=== PATIENT | male | born 1970 | race American Indian/Alaskan Native ===

== ENCOUNTER 2016-03-05 07:23 | Inpatient (IN) | payer OTHER ==
[2016-03-05] MEDS ORDERED: CARDIZEM ONE (07:31)
[2016-03-05] MEDS ORDERED: SUBLIMAZE ONE (07:31)
[2016-03-05] MEDS ORDERED: VERSED IV ONE (07:36)
[2016-03-05] MEDS ORDERED: NACL 0.9% 1000 ML 1,000 ML ONE (07:37)
[2016-03-05] MEDS ORDERED: ZOFRAN ONE (07:43)
[2016-03-05] MEDS ORDERED: NACL 0.9% 1000 ML 2,000 ML IV ONE (07:49)
[2016-03-05] MEDS ORDERED: SUBLIMAZE IV ONE (07:50)
--- NOTE | 2016-03-05 08:09 | Emergency Department Report ---
HPI - General Chief Complaint: Arrhythmia/Palpitations Time Seen by Provider: 03/05/16 07:48 - HPI HPI: The patient is a 46-year-old male with a history of arrhythmia and hypertension , who presents for evaluation of palpitations and chest pain. The patient reports sudden onset of constant severe palpitations at 6:30 AM this morning, approximately 11 hour prior to my evaluation. He also reports associated mild to moderate dyspnea and midsternal pressure-like chest pain also constant since onset 1 hour ago, 8 out of 10 in severity. The patient denies fever, cough, syncope, hemoptysis, unilateral leg swelling, recent immobilization, history of DVT or PE, recent cancer. ED Past Medical Hx - Past Medical History Previous Medical History?: Yes Hx Hypertension: Yes Hx Renal Disease: Yes (stage 3, no dialysis) Additional medical history: tachycardia - Social History Smoking Status: Never Smoker Substance Use Type: None ED Review of Systems ROS: Stated complaint: CHEST PAIN/SVT Other details as noted in HPI Constitutional: denies: fever ENT: denies: throat or neck pain Respiratory: denies: cough, reports shortness of breath Cardiovascular: Reports palpitations and chest pain Endocrine: denies unexplained weight loss or gain Gastrointestinal: denies: abdominal pain, nausea Genitourinary: denies: dysuria Musculoskeletal: denies: leg swelling Skin: denies: rash Neurological: denies: headache Hematological/Lymphatic: denies: easy bleeding or easy bruising Psych: denies sadness or hopelessness Physical Exam - Physical Exam Vital Signs: Vital Signs 03/05/16 03/05/16 03/05/16 07:27 07:28 07:29 Pulse Rate 198 H 198 H Respiratory 28 H 24 25 H Rate Blood Pressure O2 Sat by Pulse 94 100 Oximetry 03/05/16 03/05/16 03/05/16 07:31 07:33 07:35 Pulse Rate 193 H 194 H 195 H Respiratory 21 18 27 H Rate Blood Pressure O2 Sat by Pulse 90 96 92 Oximetry 03/05/16 03/05/16 03/05/16 07:37 07:39 07:41 Pulse Rate 191 H 189 H 87 Respiratory 23 19 37 H Rate Blood Pressure 68/22 O2 Sat by Pulse 94 92 92 Oximetry 03/05/16 03/05/16 07:42 07:54 Pulse Rate 72 Respiratory 26 H 26 H Rate Blood Pressure 96/53 O2 Sat by Pulse 97 Oximetry Physical Exam: General: well-nourished, well-developed, no acute distress Head: Normocephalic, atraumatic Eyes: normal sclera ENT: Mucous membranes are pale and dry Neck: trachea midline, neck supple, No neck stiffness, no cervical adenopathy Respiratory: Breath sounds equal bilaterally, no wheezing, rales, or rhonchi Cardio: tachycardia present, S1 and S2 present, no murmurs, rubs, gallops, capillary refill is delayed Abdomen: Normoactive bowel sounds, soft abdomen, no rigidity, no guarding or rebound tenderness Musc: No pitting edema Skin: No rash Neuro: no facial drooping, normal speech Psych: Normal affect ED Course Vital Signs 03/05/16 03/05/16 03/05/16 07:27 07:28 07:29 Pulse Rate 198 H 198 H Respiratory 28 H 24 25 H Rate Blood Pressure O2 Sat by Pulse 94 100 Oximetry 03/05/16 03/05/16 03/05/16 07:31 07:33 07:35 Pulse Rate 193 H 194 H 195 H Respiratory 21 18 27 H Rate Blood Pressure O2 Sat by Pulse 90 96 92 Oximetry 03/05/16 03/05/16 03/05/16 07:37 07:39 07:41 Pulse Rate 191 H 189 H 87 Respiratory 23 19 37 H Rate Blood Pressure 68/22 O2 Sat by Pulse 94 92 92 Oximetry 03/05/16 03/05/16 07:42 07:54 Pulse Rate 72 Respiratory 26 H 26 H Rate Blood Pressure 96/53 O2 Sat by Pulse 97 Oximetry ED Medical Decision Making - Lab Data Result diagrams: 03/05/16 08:10 03/05/16 08:10 - Medical Decision Making The patient was seen and examined by myself. The patient is placed on a electronic device monitor and continuous pulse ox. Prior to arrival the patient was given IV adenosine via EMS. On initial evaluation, the patient was found to be in no distress, with severe tachycardia, heart rate 196, and mild tachypnea. EKG demonstrates regularly irregular narrow complex tachycardia, heart rate in 190s. The patient is given a second dose of IV adenosine and the patient converts to NS rhythm with normal heart rate. Evaluation orders were placed. The patient is given IV fentanyl for his chest pain and 1 L normal saline fluid bolus for treatment of dehydration. The patient is given a tablet of aspirin. A second EKG reveals normal sinus rhythm with ST depression in leads V3 and V4, concerning for ischemia. Chest x-ray is negative for pneumothorax, focal consolidation, pulmonary vascular congestion, pleural effusion, or other obvious acute cardiopulmonary disease process. Lab results reveal elevated creatinine level, consistent with known history of stage III CKD, and otherwise labs were non-concerning including levels of troponin, WBC, hemoglobin, hematocrit, electrolytes. The patient is given a tablet of aspirin. The on-call hospitalist service was contacted. They agreed to admit the patient for further treatment and close monitoring. The ED admit order was placed. The patient was admitted in guarded condition. Critical care attestation.: If time is entered above; I have spent that time in minutes in the direct care of this critically ill patient, excluding procedure time. ED Disposition Clinical Impression: Acute chest pain, SVT (supraventricular tachycardia), Anterior ST segment depression Disposition: OP ADMITTED IP TO THIS HOSP Is pt being admited?: Yes Does the pt Need Aspirin: Yes Condition: Stable Instructions: Chest Pain (ED) Referrals: PRIMARY CARE [Primary Care Provider] - 3-5 Days Time of Disposition: 08:32
[2016-03-05 08:28] LABS: Basophils % (Auto) 0.7 % (0.0-1.8); Eosinophils % (Auto) 3.6 % (0.0-4.3); Hematocrit 32.2 % (35.5-45.6); Hemoglobin 10.3 gm/dl (11.8-15.2); Mean Corpuscular HGB Conc 32 % (32-34); Mean Corpuscular Hemoglobin 28 pg (28-32); Mean Corpuscular Volume 89 fl (84-94); Platelet Count 206 K/mm3 (140-440); Red Blood Count 3.64 M/mm3 (3.65-5.03); Red Cell Distribution Width 14.2 % (13.2-15.2); White Blood Count 6.6 K/mm3 (4.5-11.0)
[2016-03-05 08:39] LABS: INR 1.04 (0.87-1.13)
[2016-03-05 08:40] LABS: Partial Thromboplastin Time 29.7 Sec. (24.2-36.6)
--- NOTE | 2016-03-05 08:44 | XRay Report ---
Portable supine chest: Lungs are somewhat hypoventilated with elevation of right hemidiaphragm. There is rotation to the left. The lungs appear clear. The heart is difficult to assess due to positioning and inspiratory limitation. No vascular congestion considering positioning. Impression: Limited quality study. Nonspecific right diaphragmatic elevation. Recommendation: Suggest repeat examination with proper positioning and inspiration when possible.
[2016-03-05 10:42] LABS: Alanine Aminotransferase 12 units/L (7-56); Albumin 3.1 g/dL (3.9-5); Albumin/Globulin Ratio 1.2 %; Alkaline Phosphatase 59 units/L (35-129); Anion Gap 25 mmol/L; BUN/Creatinine Ratio 13.03; Bilirubin,Total < 0.2 mg/dL (0.1-1.2); Blood Urea Nitrogen 43 mg/dL (9-20); Calcium 7.7 mg/dL (8.4-10.2); Carbon Dioxide 15 mmol/L (22-30); Chloride 105.3 mmol/L (98-107); Glucose 138 mg/dL (75-100); Magnesium 1.6 mg/dL (1.7-2.3); Potassium 4.7 mmol/L (3.6-5.0); Sodium 141 mmol/L (137-145); Total Protein 5.7 g/dL (6.3-8.2)
[2016-03-05] MEDS ORDERED: BABY ASPIRIN PO ONE (10:59)
[2016-03-05] MEDS ORDERED: PHENERGAN PR PRN (11:30)
[2016-03-05] MEDS ORDERED: NITROSTAT SL PRN (11:32)
--- NOTE | 2016-03-05 11:42 | History and Physical Report ---
History of Present Illness Date of examination: 03/05/16 Date of admission: 03/05/16 10:59 Chief complaint: chest pain with palpitations this morning History of present illness: Mr. Stephenson is a 46-year-old -[place] man who presented to the emergency room with left-sided chest pain, pressing in nature associated with palpitations , diaphoresis and nausea this morning. He reported that it lasted for a couple hours. EMS was called and he was transported to the emergency room. He was noted to be in SVT with heart rates of about 200. He was given adenosine in the emergency room and he converted to sinus rhythm. The time of evaluation he had no chest pain or palpitations. Of note he reported that he's had a similar episode about 2-3 years ago and at that time he also had a stress test done which was unremarkable. Denies drug use. Past History Past Medical History: other (chronic kidney disease) Past Surgical History: Other (renal biopsy) Social history: , lives with family, full code. denies: smoking, alcohol abuse, prescription drug abuse, IV drug use Family history: hypertension Medications and Allergies Allergies Allergy/AdvReac Type Severity Reaction Status Date / Time acetaminophen [From Percocet] AdvReac Vomiting Verified 03/05/16 08:03 oxycodone HCl [From Percocet] AdvReac Vomiting Verified 03/05/16 08:04 Active Meds: Active Medications Aspirin (Aspirin) 325 mg PO QDAY CONSTANTINE Nitroglycerin (Nitrostat) 0.4 mg SL .Q5MIN PRN PRN Reason: Chest Pain Promethazine HCl (Phenergan) 25 mg MA Q6H PRN PRN Reason: N/V IF NPO AND NO IV ACCESS Review of Systems All systems: negative Constitutional: no weight loss, no weight gain, no fever, no chills, no sweats Ears, nose, mouth and throat: no ear pain, no ear discharge, no tinnitis, no decreased hearing, no nose pain Cardiovascular: other (as in the history of presenting complaint) Respiratory: no cough, no cough with sputum, no excessive sputum, no hemoptysis , no shortness of breath, no dyspnea on exertion Gastrointestinal: nausea, no abdominal pain, no vomiting, no diarrhea, no constipation, no change in bowel habits Genitourinary Male: no dysuria, no hematuria, no flank pain, no discharge Rectal: no pain, no incontinence, no bleeding Musculoskeletal: no neck stiffness, no neck pain, no shooting arm pain, no arm numbness/tingling Integumentary: no rash, no pruritis, no redness, no sores Neurological: no head injury, no transient paralysis, no paralysis, no weakness , no parathesias Psychiatric: no anxiety, no memory loss, no change in sleep habits, no sleep disturbances, no insomnia, no hypersomnia, no change in appetite Endocrine: no cold intolerance, no heat intolerance, no polyphagia Hematologic/Lymphatic: no easy bruising, no easy bleeding Allergic/Immunologic: no urticaria, no allergic rhinitis, no wheezing Exam - Constitutional Vitals: Temp Pulse Resp BP Pulse Ox 89 17 129/76 99 03/05/16 11:00 03/05/16 11:00 03/05/16 11:00 03/05/16 11:00 General appearance: Present: no acute distress, well-nourished - EENT Eyes: Present: PERRL, EOM intact. Absent: scleral icterus, conjunctival injection ENT: hearing intact, clear oral mucosa, no oropharyngeal erythema, no poor dentition - Neck Neck: Present: supple, normal ROM. Absent: enlarged thyroid, masses or JVD - Respiratory Respiratory effort: normal Respiratory: negative: diminished, rales, rhonchi, wheezing - Cardiovascular Rhythm: regular Heart Sounds: Present: S1 & S2. Absent: gallop - Extremities Extremities: no ischemia, pulses intact, pulses symmetrical, No edema, normal temperature Peripheral Pulses: within normal limits - Abdominal General gastrointestinal: Present: soft, non-tender, non-distended Male genitourinary: Present: deferred - Rectal Rectal Exam: deferred - Integumentary Integumentary: Present: clear - Musculoskeletal Musculoskeletal: strength equal bilaterally - Psychiatric Psychiatric: appropriate mood/affect, intact judgment & insight - Neurologic Neurologic: CNII-XII intact, moves all extremities Results - Labs CBC & Chem 7: 03/05/16 08:10 03/05/16 08:10 - Imaging and Cardiology EKG: image reviewed ([id number] with heart rates of 200; post adenosine ST segment depression V3 - V6 ) Chest x-ray: report reviewed ([id number]. Nonspecific right diaphragmatic elevation. The lungs appear clear) Assessment and Plan 1. PSVT with ST segment depression-now in sinus post cardioversion with adenosine; we'll admit as an inpatient to telemetry as more than 2 minutes and required for treatment. TSH is normal. We'll check drug screen. We'll do serial cardiac enzymes. We'll also get echocardiogram and follow-up with cardiology for further recommendations. For stress test in the morning; echo lipid panel. Continue aspirin. Nitroglycerin as needed for chest pain 2. Chronic kidney disease stage IV-consult Dr. Buckner a his machinist outside, will avoid nephrotoxic agents. Monitor BUN and creatinine 3. Hypomagnesemia- will replace with IV supplementation; monitor 4. 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 DVT prophylaxis-heparin
[2016-03-05 11:44] LABS: Bacteria,Urine 1+ /HPF (Negative); Bilirubin,Urine NEG (Negative); Blood,Urine MOD (Negative); Ketones,Urine NEG (Negative); Leukocyte Esterase,Urine NEG (Negative); Nitrite,Urine NEG (Negative); Urobilinogen,Urine < 2.0 mg/dL (<2.0); WBC,Urine < 1.0 /HPF (0.0-6.0)
--- NOTE | 2016-03-05 12:26 | Consultation ---
History of Present Illness Consult date: 03/05/16 Requesting physician: STEVO GONZALEZ Consult reason: arrhythmia, chest pain History of present illness: At about 6:30 AM this morning, the patient claims that he felt suddenly hot and diaphoretic. He then developed precordial chest pressure associated with shortness of breath. After a while, he developed palpitations as well as dizziness and presyncope. He went out of his house to take some fresh air. However, symptoms persisted. As such, he was brought to the emergency department for evaluation. In the ER, he was in rapid supraventricular tachycardia. He received adenosine with conversion to sinus rhythm. His electrolytes are normal as well as his thyroid profile. He recalls presenting to the ER to [facility] with an unspecified arrhythmia about 2 years ago. Past History Past Medical History: hypertension, hyperlipidemia, other (stage III CKD followed by Dr. Buckner.) Past Surgical History: Other (renal biopsy) Social history: , lives with family, full code. denies: smoking, alcohol abuse, prescription drug abuse, IV drug use Family history: denies: CAD Medications and Allergies Allergies Allergy/AdvReac Type Severity Reaction Status Date / Time acetaminophen [From Percocet] AdvReac Vomiting Verified 03/05/16 08:03 oxycodone HCl [From Percocet] AdvReac Vomiting Verified 03/05/16 08:04 Active Meds: Active Medications Aspirin (Aspirin) 325 mg PO QDAY CONSTANTINE Nitroglycerin (Nitrostat) 0.4 mg SL .Q5MIN PRN PRN Reason: Chest Pain Promethazine HCl (Phenergan) 25 mg NC Q6H PRN PRN Reason: N/V IF NPO AND NO IV ACCESS Review of Systems Constitutional: no fever, no chills Ears, nose, mouth and throat: no ear pain, no ear discharge, no sore throat Cardiovascular: chest pain, palpitations, lightheadedness, shortness of breath Respiratory: shortness of breath, no cough, no hemoptysis Gastrointestinal: no abdominal pain, no nausea, no vomiting, no diarrhea, no constipation Genitourinary Male: no dysuria, no urinary frequency Rectal: no pain, no bleeding Musculoskeletal: no neck pain, no myalgias, no atrophy Integumentary: no rash, no pruritis Neurological: no weakness, no parathesias, no numbness, no tingling, no headaches Endocrine: no cold intolerance, no heat intolerance Hematologic/Lymphatic: no easy bruising, no easy bleeding Allergic/Immunologic: no urticaria, no wheezing Physical Examination Vital Signs Last Vital Signs Temp Pulse 89 03/05/16 11:00 Resp 17 03/05/16 11:00 BP 129/76 03/05/16 11:00 Pulse Ox 99 03/05/16 11:00 General appearance: no acute distress HEENT: Positive: EOMI, Normocephaly, Mucus Membranes Moist Neck: Positive: neck supple, trachea midline Cardiac: Positive: Reg Rate and Rhythm, S1/S2 Lungs: Positive: clear to auscultation Neuro: Positive: Grossly Intact Abdomen: Positive: Soft, Active Bowel Sounds. Negative: Tender Skin: Positive: Clear. Negative: Rash Musculoskeletal: Normal Range of Motion Extremities: Present: normal. Absent: edema Results 03/05/16 08:10 03/05/16 08:10 - Imaging and Cardiology EKG: image reviewed EKG interpretations - Telemetry EKG Rhythm: Sinus Rhythm - EKG Sinus rhythms and dysrhythmias: sinus rhythm Repolarization changes or abnormalities: ST or T wave suggestive of ischemia Assessment and Plan Initiate beta yazmin therapy for suppression of SVT. Obtain echocardiogram. Schedule stress test with nuclear imaging in a.m. if cardiac enzymes are negative. - Patient Problems (1) Paroxysmal supraventricular tachycardia Current Visit: Yes Status: Acute (2) Chest pain Current Visit: Yes Status: Acute Qualifiers: Chest pain type: precordial chest pain Qualified Code(s): R07.2 - Precordial pain (3) Anterior ST segment depression Current Visit: Yes Status: Acute (4) Abnormal ECG Current Visit: Yes Status: Acute (5) CKD (chronic kidney disease) Current Visit: Yes Status: Chronic Qualifiers: Chronic kidney disease stage: stage 3 (moderate) Qualified Code(s): N18.3 - Chronic kidney disease, stage 3 (moderate)
--- NOTE | 2016-03-05 12:26 | Admit Criteria Form ---
Admission Criteria Documentation: CHEST PAIN Clinical Indications for Admission to Inpatient Care (Place 'X' for any and all applicable criteria): Admission is indicated for chest pain and ANY ONE of the following(1)(2)(3)(4)(5 ): [ ]I. Angina with acute coronary syndrome (Also use Myocardial Infarction or Angina guideline) [ ]II. Hemodynamic instability [X ]III. Angina needing acute intervention as indicated by ALL of the following (11)(12): [X ]a) Unstable angina is present as indicated by angina that is ANY ONE of the following: [X ]i) New onset [ ]ii) Nocturnal [ ]iii) Prolonged at rest [ ]iv) Progressive [ X]b) Angina warrants acute intervention as indicated by ANY ONE of the following: [ ]i) Recurrent angina (e.g, not responding as previously to treatment) [ ]ii) Angina at rest or with low-level activities despite initial medical therapy [X ]iii) New or presumably new ST-segment depression on ECG [ ]iv) Signs or symptoms of heart failure (eg, dyspnea, pulmonary edema) [ ]v) New or worsening mitral regurgitation [ ]vi) Hemodynamic instability [ ]vii) Dangerous arrhythmia (eg, sustained ventricular tachycardia) [ ]viii) History of percutaneous coronary intervention within 6 months [ ]ix) History of coronary artery bypass graft surgery [ ]x) CLAUDIA risk score of 2 or greater[A] [ ]xi) History of Diabetes(14) [ ]xii) High-risk cardiac ischemia findings on noninvasive testing (e.g, echocardiogram, treadmill testing, nuclear scan) [ ]xiii) Chronic renal insufficiency (ie, estimated GFR less than 60 mL/min/1.732m) [ ]xiv) Left ventricular ejection fraction less than 40% [ ]IV. Evidence of NH (eg, cardiac biomarkers positive, ST-segment elevation on ECG) also use Myocardial Infarction Criteria Form. [ ]V. Pulmonary edema [ ]. Respiratory distress [ ]VII. Chest pain indicative of serious diagnosis other than coronary artery disease (eg, aortic dissection) [ ]VIII. Contraindications and/or Inappropriate clinical situations for Observational Care in patients with Chest Pain, when ANY ONE of the following is required: [ ]a) Patient with risk factor for pulmonary embolism, acute coronary syndrome and myocardial infarction (18) [ ]b) Patient with Pulmonary embolism require an average LOS of 4.3 days, therefore emergency department observation management is inappropriate 18,23 [ ]c) Painful condition/s in the elderly, have the highest rate of recidivism after emergency department observation management (10.8%) 20,21,22 [ ]d) Elevated cardiac biomarker requires intensive and exhaustive care (19) [ ]IX. General contraindications and/or Inappropriate clinical situations for Observational Care in patients with Chest Pain, when ANY ONE of the following is required: [ ]a) Prediction of prolongation of LOS based on ANY ONE of the following may be considered as a contraindication for observational care 2, 3, 4, 5, 6, 7, 8, 9, 10, 11 [ ]i) Age > 65 yrs. [ ]ii) Patient arriving by ambulance [ ]iii) Patient with high acuity [ ]iv) Patient requiring vital sign monitoring [ ]v) Patient on IV medication [ ]b) Systolic blood pressures 180mmHg 3,12 [ ]c) Patient with altered mental status including delirium and other alteration of consciousness, (3) [ ]d) Patient whose discharge disposition will be to a longterm home or rehabilitation home should not be managed in Emergency Department Observation Unit. CMS rule requires 3 days hospital stay before such placement. 3,13 [ ]e) Patient with failure to thrive due to broad array of etiologies 3,16,17 [ ]f) Inability to ambulate 3,14 Extended stay beyond goal length of stay may be needed for (1)(28): [ ]a) Specific condition diagnosed after evaluation (eg, pulmonary embolism, aortic dissection) [ ]b) Unstable angina [ ]c) Continued suspicion of acute coronary syndrome with inability to complete needed cardiac evaluation (eg, patient clinically unable to undergo stress testing) [ ]d) Myocardial infarction (Contents from ANGINA and CHEST PAIN clinical indications for admission to inpatient care have been integrated in this form) The original [employer] content created by [employer] has been revised. The portions of the content which have been revised are identified through the use of italic text or in bold, and [facility] has neither reviewed nor approved the modified material. All other unmodified content is copyright [employer]. Please see references footnoted in the original [facility] edition 2016 Admission Criteria Met: Yes
[2016-03-05] MEDS ORDERED: MAGNESIUM SULFATE 1 GM in NACL 0.9% 50 ML IV ONE (12:35)
--- NOTE | 2016-03-05 17:52 | Echocardiography Report ---
Transthoracic Echocardiogram Indication: CHEST PAIN BP: 129/76 HR: 80 Conclusions *There is trace tricuspid regurgitation. *The left ventricular chamber size is normal. *Posterior wall hypertrophy is observed. *Global left ventricular systolic function is normal. *The estimated ejection fraction is 55-60%. *The right ventricular chamber size and systolic function are within normal limits. Findings Procedure Info: The study quality is fair. The study is technically limited due to patient body habitus. Left Ventricle: The left ventricular chamber size is normal. Posterior wall hypertrophy is observed. Global left ventricular wall motion and contractility are within normal limits. Global left ventricular systolic function is normal. The estimated ejection fraction is 55-60%. Normal left ventricular diastolic filling is observed. Left Atrium: The left atrial chamber size is normal. Right Ventricle: The right ventricular chamber size and systolic function are within normal limits. Right Atrium: The right atrial cavity size is normal. Aortic Valve: The aortic valve is trileaflet. There is no evidence of aortic regurgitation. There is no evidence of aortic stenosis. Mitral Valve: The mitral valve leaflets are mildly thickened. There is no evidence of mitral regurgitation. There is no evidence of mitral stenosis. Tricuspid Valve: The tricuspid valve is not well visualized. There is trace tricuspid regurgitation. There is no tricuspid stenosis. Pulmonic Valve: The pulmonic valve is not well visualized. There is trace pulmonic regurgitation. There is no pulmonic stenosis. Pericardium: There is no pericardial effusion. Aorta: The aortic root is not well visualized. Pulmonary Artery: The main pulmonary artery is not well visualized. Venous: The inferior vena cava appears normal in size. There is a greater than 50% respiratory change in the inferior vena cava dimension. Measurements Chambers MM Name Value Normal Range IVSd (MM) 0.82 cm (0.6 - 1.1) LVPWd (MM) 0.78 cm (0.6 - 1.1) IVS:LVPW ratio 1.05 ratio - LVIDd (MM) 5.27 cm (3.7 - 5.6) LVIDs (MM) 2.66 cm (2 - 2.8) LV FS (Teichholz) (MM) 49.5 % - LV FS (cube) (MM) 49.5 % - EF Teichholz (MM) 80.6 % - Ao root diameter (MM) 2 cm (2 - 3.7) LA dimension (AP) MM 3.8 cm (1.9 - 4) LA:Ao ratio (MM) 1.9 ratio - AV cusp separation (MM) 1.8 cm (1.5 - 2.6) Chambers 2D Name Value Normal Range IVSd (2D) 1.08 cm (0.6 - 1.1) LVPWd 1.4 cm - LVPWd (2D) 1.37 cm (0.6 - 1.1) IVS:LVPW ratio (2D) 0.79 ratio - LVIDd 3.7 cm - LVIDs 2.2 cm - LVIDd (2D) 3.67 cm (3.7 - 5.6) LVIDs (2D) 2.22 cm (2 - 3.8) LV FS (Teichholz) (2D) 39.5 % - LV FS (cube) (2D) 39.5 % - LV EF (2D) 70 % - EF Teichholz (2D) 70.9 % - LA dimension 3.6 cm - Ao root diameter (2D) 2.9 cm (2 - 3.7) LA dimension (AP) 2D 3.6 cm (1.9 - 4) LA:Ao ratio (2D) 1.24 ratio - Volumes/Mass Name Value Normal Range LA ESV SP 4CH (MOD) 38 ml - LV EDV SP 4CH (MOD) 82 ml - LV ESV SP 4CH (MOD) 33 ml - EF SP 4CH (MOD) 60 % - Diastolic/Systolic Function Name Value Normal Range MV E-wave Vmax 0.66 m/sec - MV deceleration time 222 msec - MV A-wave Vmax 0.62 m/sec - MV E:A ratio 1.1 ratio - LV septal e' Vmax 0.11 m/sec - LV lateral e' Vmax 0.1 m/sec - LV E:e' septal ratio 6 ratio - LV E:e' lateral ratio 6.9 ratio - Aortic Valve Name Value Normal Range AV Vmax 1.1 m/sec - AV peak gradient 5 mmHg - LVOT diameter 2 cm - LVOT Vmax 0.88 m/sec - LVOT peak gradient 3 mmHg - PHILLY (continuity Vmax) 2.52 cm2 - Tricuspid Valve Name Value Normal Range TR Vmax 2.13 m/sec - TR peak gradient 18 mmHg - RAP 3 mmHg - RVSP 21 mmHg - Pulmonic Valve/Qp:Qs Name Value Normal Range PV Vmax 0.78 m/sec - PV peak gradient 2 mmHg - OH end-diastolic Vmax 1.05 m/sec - PV acceleration time 95 msec -
[2016-03-05] MEDS ORDERED: LOVENOX SUB-Q SCH (22:00)
[2016-03-05] MEDS: LOPRESSOR PO SCH (22:28)
[2016-03-05] MEDS: LOVENOX SUB-Q SCH (22:29)
[2016-03-05] MEDS: TYLENOL PO PRN (23:18)
[2016-03-06] MEDS: ASPIRIN PO SCH (10:55)
[2016-03-06] MEDS: LOPRESSOR PO SCH ×2 (10:55→22:15)
[2016-03-06] MEDS: LOVENOX SUB-Q SCH (10:55)
--- NOTE | 2016-03-06 10:55 | Consultation ---
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 Patient's baseline Cr was around 2.6mg/ dl with eGFR of 32ml/min, which was stable at last visit. at that time patient was found to be tachycardic with HR around 100-110, EKG showed sinus tachycardia. Patient then experienced midsternal chest pressure in AM of 03/05/16 , associated with SOB, and palpitations, along with dizziness, diaphoresis, which prompted to present to ER. In the ER, patient was found to be in rapid supraventricular tachycardia, which converted to SR after adenosine. First set of troponin was negative, however second set showed elevated troponin of 0.193. Patient was also found to have elevated BUN/Cr at 43/3.3mg/dl. Renal consult is requested for management of HANNAH on CKD also for prevention of contrast induced nephropathy in view of possible cardiac cath. Past History Past Medical History: hypertension, hyperlipidemia, other (stage III CKD followed by Dr. Buckner. h/o FSGS) Past Surgical History: Other (renal biopsy) Social history: , lives with family, full code. denies: smoking, alcohol abuse, prescription drug abuse, IV drug use Family history: denies: CAD Medications and Allergies Allergies Allergy/AdvReac Type Severity Reaction Status Date / Time acetaminophen [From Percocet] AdvReac Vomiting Verified 03/05/16 08:03 oxycodone HCl [From Percocet] AdvReac Vomiting Verified 03/05/16 08:04 Active Meds: Active Medications Acetaminophen (Tylenol) 650 mg PO Q6H PRN PRN Reason: Pain, Mild (1-3) Last Admin: 03/05/16 23:18 Dose: 650 mg Aspirin (Aspirin) 325 mg PO QDAY CONSTANTINE Atorvastatin Calcium (Lipitor) 40 mg PO QHS [facility] Last Admin: 03/05/16 22:28 Dose: 40 mg Enoxaparin Sodium (Lovenox) 110 mg SUB-Q Q24HR@2200 [facility] Sodium Bicarbonate 75 meq/ (Sodium Chloride) 1,075 mls @ 75 mls/hr IV DIRECT [facility] Stop: 03/07/16 18:00 Metoprolol Tartrate (Lopressor) 12.5 mg PO BID [facility] Last Admin: 03/05/16 22:28 Dose: 12.5 mg Nitroglycerin (Nitrostat) 0.4 mg SL .Q5MIN PRN PRN Reason: Chest Pain Promethazine HCl (Phenergan) 25 mg NV Q6H PRN PRN Reason: N/V IF NPO AND NO IV ACCESS Review of Systems All systems: negative Constitutional: fatigue Cardiovascular: chest pain, palpitations, rapid/irregular heart beat, lightheadedness, shortness of breath Exam - Vital Signs Vital signs: Vital Signs Resp 28 H 03/05/16 07:27 - General Appearance General appearance: well-developed, well-nourished, appears stated age EENT: ATNC, PERRL, mucous membranes moist Neck: Present: neck supple Respiratory: Clear to Ascultation Heart: regular, S1S2 Gastrointestinal: Present: normal, normoactive bowel sounds Integumentary: no rash, other (no edema ) Neurologic: no focal deficit, alert and oriented x3, CN 3-12 intact Psychiatric: mood/affect appropriate, cooperative Results - Lab Results 03/05/16 08:10 03/05/16 08:10 Most recent lab results Calcium 7.7 mg/dL (8.4-10.2) L 03/05/16 08:10 Magnesium 1.6 mg/dL (1.7-2.3) L 03/05/16 08:10 Laboratory Tests 03/05/16 03/05/16 03/05/16 08:10 08:10 08:10 PT INR APTT Total Bilirubin < 0.2 AST 15 ALT 12 Alkaline Phosphatase 59 Total Creatine Kinase 420 H Troponin T < 0.010 NT-Pro-B Natriuret Pep 7.65 Total Protein 5.7 L Albumin 3.1 L Albumin/Globulin Ratio 1.2 Triglycerides Cholesterol LDL Cholesterol Direct HDL Cholesterol Cholesterol/HDL Ratio TSH Free T4 0.94 Urine Color Urine Turbidity Urine pH Ur Specific [place] Urine Protein Urine Glucose (UA) Urine Ketones Urine Blood Urine Nitrite Urine Bilirubin Urine Urobilinogen Ur Leukocyte Esterase Urine WBC (Auto) Urine RBC (Auto) Urine Bacteria (Auto) 03/05/16 03/05/16 03/05/16 08:10 08:10 08:10 PT 13.5 INR 1.04 APTT 29.7 Total Bilirubin AST ALT Alkaline Phosphatase Total Creatine Kinase Troponin T NT-Pro-B Natriuret Pep Total Protein Albumin Albumin/Globulin Ratio Triglycerides 227 H Cholesterol 184 LDL Cholesterol Direct 114 HDL Cholesterol 25 L Cholesterol/HDL Ratio 7.36 TSH 3.330 Free T4 Urine Color Urine Turbidity Urine pH Ur Specific [place] Urine Protein Urine Glucose (UA) Urine Ketones Urine Blood Urine Nitrite Urine Bilirubin Urine Urobilinogen Ur Leukocyte Esterase Urine WBC (Auto) Urine RBC (Auto) Urine Bacteria (Auto) 03/05/16 03/05/16 11:22 17:06 PT INR APTT Total Bilirubin AST ALT Alkaline Phosphatase Total Creatine Kinase Troponin T 0.253 H* D NT-Pro-B Natriuret Pep Total Protein Albumin Albumin/Globulin Ratio Triglycerides Cholesterol LDL Cholesterol Direct HDL Cholesterol Cholesterol/HDL Ratio TSH Free T4 Urine Color Straw Urine Turbidity Clear Urine pH 5.0 Ur Specific [place] 1.008 Urine Protein 100 mg/dl Urine Glucose (UA) Neg Urine Ketones Neg Urine Blood Mod Urine Nitrite Neg Urine Bilirubin Neg Urine Urobilinogen < 2.0 Ur Leukocyte Esterase Neg Urine WBC (Auto) < 1.0 Urine RBC (Auto) 13.0 Urine Bacteria (Auto) 1+ Assessment and Plan Assessment: 1. Acute kidney injury superimposed on CKD stage 3, most likely due to pre- renal azotemia and hemodynamic changes in the setting of rapid SVT. 2. SVT 3. elevated troponin 4. h/o FSGS 5. Hypertension 6. Metabolic acidosis 7. Proteinuria due to #4 Plan/recommendations : - will start 1/2NS + 75meq Na bicarb at 75ml/hr for correction of metabolic acidosis and prophylaxis for contrast induced nephropathy. Patient with increased risk for contrast induced nephropathy, however would be cleared for cardiac cath from renal stand point with above preventative measures given possible acute coronary event. - continue to hold valsartan for now until GFR is in steady state. - BP currently well controlled - continue supportive care for HANNAH/CKD avoid nephrotoxins, NSAIDs, use lowest possible amount of IV contrast. - will monitor electrolytes and renal parameters closely and make further recommendations d/w patient, at bedside and Dr Ortez regarding renal care plan.
[2016-03-06] MEDS ORDERED: SODIUM BICARBONATE 75 MEQ in NACL 0.45% 1000 ML 1,000 ML IV SCH ×2 (11:00→12:00)
--- NOTE | 2016-03-06 11:48 | Progress Note ---
Addendum entered and electronically signed by CORRINA DAWN MD 03/06/16 12:24: I have seen and examined the patient and agree with the documentation below. Original Note: Assessment and Plan Although cardiac enzymes are suggestive of NSTEMI, given the patient's resolution of chest pain and chronic kidney disease, will proceed with Lexiscan thallium stress test in am. - Patient Problems (1) Non-ST elevated myocardial infarction Current Visit: Yes Status: Acute (2) Paroxysmal supraventricular tachycardia Current Visit: Yes Status: Acute (3) Chest pain Current Visit: Yes Status: Acute Qualifiers: Chest pain type: precordial chest pain Qualified Code(s): R07.2 - Precordial pain (4) Anterior ST segment depression Current Visit: Yes Status: Acute (5) Abnormal ECG Current Visit: Yes Status: Acute (6) CKD (chronic kidney disease) Current Visit: Yes Status: Chronic Qualifiers: Chronic kidney disease stage: stage 3 (moderate) Qualified Code(s): N18.3 - Chronic kidney disease, stage 3 (moderate) Subjective Date of service: 03/06/16 Principal diagnosis: SVT, elevated troponin Interval history: The patient is resting comfortably in bed. No palpitations or chest pain overnight. Sinus rhythm on the monitor. Objective Last Vital Signs Temp 98.3 F 03/06/16 07:57 Pulse 89 03/06/16 07:57 Resp 20 03/06/16 07:57 BP 113/73 03/06/16 07:57 Pulse Ox 98 03/06/16 07:57 - Physical Examination General: No Apparent Distress HEENT: Positive: EOMI, Normocephaly, Mucus Membranes Moist Neck: Positive: neck supple Cardiac: Positive: Reg Rate and Rhythm, S1/S2 Lungs: Positive: clear to auscultation Neuro: Positive: Grossly Intact Abdomen: Positive: Soft, Active Bowel Sounds. Negative: Tender Skin: Positive: Clear. Negative: Rash Musculoskeletal: Normal Range of Motion Extremities: Present: normal. Absent: edema - Imaging and Cardiology EKG: image reviewed Echo: report reviewed (03/2016: EF 55-60%) - Telemetry EKG Rhythm: Sinus Rhythm - EKG Sinus rhythms and dysrhythmias: sinus rhythm Repolarization changes or abnormalities: ST or T wave suggestive of ischemia
[2016-03-06] MEDS ORDERED: NACL 0.45% 1000 ML 1,000 ML with SODIUM BICARBONATE 75 MEQ IV SCH (12:00)
--- NOTE | 2016-03-06 16:40 | Progress Note ---
Assessment and Plan Assessment and plan: 1. NSTEMI- continue aspirin, statin and beta yazmin, continue Lovenox for anticoagulation renally dosed; Cardiac catheterization was not done today due to acute on CKD. Patient is for stress test in the morning. Cardiology f/u appreciated 2. PSVT with ST segment depression-in sinus post cardioversion with adenosine; no recurrent episodes 3 3.Acute on Chronic kidney disease stage IV due to vasomotor nephropathy- consult from renal appreciated; agree with IVF; will avoid nephrotoxic agents. Monitor BUN and creatinine 4. Hypomagnesemia- was replaced; will repeat level in the a.m 5. Anemia due to CKD- stable; asymptomatic; defer to renal 6. DVT prophylaxis-heparin History Interval history: Follow-up for PSVT, chest pain, and NSTEMI Patient seen on the bedside, is present. No chest pain Hospitalist Physical - Constitutional Vitals: Temp Pulse Resp BP Pulse Ox 98.4 F 80 20 123/83 98 03/06/16 15:41 03/06/16 15:41 03/06/16 15:41 03/06/16 15:41 03/06/16 15:41 General appearance: Present: no acute distress, well-nourished - EENT Eyes: Present: PERRL, EOM intact. Absent: scleral icterus, conjunctival injection ENT: hearing intact, clear oral mucosa, no oropharyngeal erythema, no poor dentition - Neck Neck: Present: supple, normal ROM. Absent: enlarged thyroid, masses or JVD - Respiratory Respiratory effort: normal Respiratory: negative: diminished, rales, rhonchi, wheezing - Cardiovascular Rhythm: regular Heart Sounds: Present: S1 & S2. Absent: gallop - Extremities Extremities: no ischemia, pulses intact, pulses symmetrical, No edema Peripheral Pulses: within normal limits - Abdominal General gastrointestinal: soft, non-tender, non-distended, normal bowel sounds - Integumentary Integumentary: Present: clear - Psychiatric Psychiatric: appropriate mood/affect, intact judgment & insight, cooperative - Neurologic Neurologic: CNII-XII intact, moves all extremities Results - Labs CBC & Chem 7: 03/05/16 08:10 03/05/16 08:10 Labs: Laboratory Last Values WBC 6.6 K/mm3 (4.5-11.0) 03/05/16 08:10 RBC 3.64 M/mm3 (3.65-5.03) L 03/05/16 08:10 Hgb 10.3 gm/dl (11.8-15.2) L 03/05/16 08:10 Hct 32.2 % (35.5-45.6) L 03/05/16 08:10 MCV 89 fl (84-94) 03/05/16 08:10 MCH 28 pg (28-32) 03/05/16 08:10 MCHC 32 % (32-34) 03/05/16 08:10 RDW 14.2 % (13.2-15.2) 03/05/16 08:10 Plt Count 206 K/mm3 (140-440) 03/05/16 08:10 Lymph % (Auto) 23.2 % (13.4-35.0) 03/05/16 08:10 [place] % (Auto) 11.6 % (0.0-7.3) H 03/05/16 08:10 Eos % (Auto) 3.6 % (0.0-4.3) 03/05/16 08:10 Baso % (Auto) 0.7 % (0.0-1.8) 03/05/16 08:10 Lymph # 1.5 K/mm3 (1.2-5.4) 03/05/16 08:10 [place] # 0.8 K/mm3 (0.0-0.8) 03/05/16 08:10 Eos # 0.2 K/mm3 (0.0-0.4) 03/05/16 08:10 Baso # 0.0 K/mm3 (0.0-0.1) 03/05/16 08:10 Seg Neutrophils % 60.9 % (40.0-70.0) 03/05/16 08:10 Seg Neutrophils # 4.0 K/mm3 (1.8-7.7) 03/05/16 08:10 PT 13.5 Sec. (12.2-14.9) 03/05/16 08:10 INR 1.04 (0.87-1.13) 03/05/16 08:10 APTT 29.7 Sec. (24.2-36.6) 03/05/16 08:10 Sodium 141 mmol/L (137-145) 03/05/16 08:10 Potassium 4.7 mmol/L (3.6-5.0) 03/05/16 08:10 Chloride 105.3 mmol/L (98-107) 03/05/16 08:10 Carbon Dioxide 15 mmol/L (22-30) L 03/05/16 08:10 Anion Gap 25 mmol/L 03/05/16 08:10 BUN 43 mg/dL (9-20) H 03/05/16 08:10 Creatinine 3.3 mg/dL (0.8-1.5) H 03/05/16 08:10 Estimated GFR 25 ml/min 03/05/16 08:10 BUN/Creatinine Ratio 13.03 % 03/05/16 08:10 Glucose 138 mg/dL (75-100) H 03/05/16 08:10 Calcium 7.7 mg/dL (8.4-10.2) L 03/05/16 08:10 Magnesium 1.6 mg/dL (1.7-2.3) L 03/05/16 08:10 Total Bilirubin < 0.2 mg/dL (0.1-1.2) 03/05/16 08:10 AST 15 units/L (5-40) 03/05/16 08:10 ALT 12 units/L (7-56) 03/05/16 08:10 Alkaline Phosphatase 59 units/L (35-129) 03/05/16 08:10 Total Creatine Kinase 420 units/L (55-170) H 03/05/16 08:10 Troponin T 0.193 ng/mL (0.00-0.029) H* D 03/05/16 18:13 NT-Pro-B Natriuret Pep 7.65 pg/mL (0-450) 03/05/16 08:10 Total Protein 5.7 g/dL (6.3-8.2) L 03/05/16 08:10 Albumin 3.1 g/dL (3.9-5) L 03/05/16 08:10 Albumin/Globulin Ratio 1.2 % 03/05/16 08:10 Triglycerides 227 mg/dL (2-149) H 03/05/16 08:10 Cholesterol 184 mg/dL (50-199) 03/05/16 08:10 LDL Cholesterol Direct 114 mg/dL (50-130) 03/05/16 08:10 HDL Cholesterol 25 mg/dL (40-59) L 03/05/16 08:10 Cholesterol/HDL Ratio 7.36 % 03/05/16 08:10 TSH 3.330 mlU/mL (0.270-4.200) 03/05/16 08:10 Free T4 0.94 ng/dL (0.76-1.46) 03/05/16 08:10 Urine Color Straw (Yellow) 03/05/16 11:22 Urine Turbidity Clear (Clear) 03/05/16 11:22 Urine pH 5.0 (5.0-7.0) 03/05/16 11:22 Ur Specific [place] 1.008 (1.003-1.030) 03/05/16 11:22 Urine Protein 100 mg/dl mg/dL (Negative) 03/05/16 11:22 Urine Glucose (UA) Neg mg/dL (Negative) 03/05/16 11:22 Urine Ketones Neg mg/dL (Negative) 03/05/16 11:22 Urine Blood Mod (Negative) 03/05/16 11:22 Urine Nitrite Neg (Negative) 03/05/16 11:22 Urine Bilirubin Neg (Negative) 03/05/16 11:22 Urine Urobilinogen < 2.0 mg/dL (<2.0) 03/05/16 11:22 Ur Leukocyte Esterase Neg (Negative) 03/05/16 11:22 Urine WBC (Auto) < 1.0 /HPF (0.0-6.0) 03/05/16 11:22 Urine RBC (Auto) 13.0 /HPF (0.0-6.0) 03/05/16 11:22 Urine Bacteria (Auto) 1+ /HPF (Negative) 03/05/16 11:22 echocardiogram-ejection fraction of 55-60%. Posterior wall hypertrophy
[2016-03-06] MEDS ORDERED: LOVENOX SUB-Q SCH (22:00)
[2016-03-06] MEDS: TYLENOL PO PRN (22:16)
[2016-03-07 06:03] LABS: BUN/Creatinine Ratio 13.66; Calcium 8.8 mg/dL (8.4-10.2); Chloride 105.5 mmol/L (98-107); Potassium 5.2 mmol/L (3.6-5.0)
[2016-03-07] MEDS ORDERED: KAYEXALATE PO ONE (07:59)
[2016-03-07] MEDS ORDERED: TOPROL XL PO SCH (10:00)
[2016-03-07] MEDS ORDERED: LEXISCAN IV ONE (10:15)
--- NOTE | 2016-03-07 11:13 | Progress Note ---
Assessment and Plan Stress test negative for ischemia. The patient may be discharged from a cardiac standpoint. Follow up appointment with Dr. Mcdonald in the [place] office on . at 1:00 pm. - Patient Problems (1) Non-ST elevated myocardial infarction Current Visit: Yes Status: Acute (2) Paroxysmal supraventricular tachycardia Current Visit: Yes Status: Acute (3) Chest pain Current Visit: Yes Status: Acute Qualifiers: Chest pain type: precordial chest pain Qualified Code(s): R07.2 - Precordial pain (4) Anterior ST segment depression Current Visit: Yes Status: Acute (5) Abnormal ECG Current Visit: Yes Status: Acute (6) CKD (chronic kidney disease) Current Visit: Yes Status: Chronic Qualifiers: Chronic kidney disease stage: stage 3 (moderate) Qualified Code(s): N18.3 - Chronic kidney disease, stage 3 (moderate) Subjective Date of service: 03/07/16 Principal diagnosis: SVT, elevated troponin Interval history: No new complaints. Sinus rhythm on the monitor. Objective Last Vital Signs Temp 98.6 F 03/07/16 06:33 Pulse 78 03/07/16 10:53 Resp 20 03/07/16 06:33 BP 122/83 03/07/16 06:33 Pulse Ox 98 03/07/16 06:33 - Physical Examination General: No Apparent Distress HEENT: Positive: EOMI, Normocephaly, Mucus Membranes Moist Neck: Positive: neck supple Cardiac: Positive: Reg Rate and Rhythm, S1/S2 Lungs: Positive: clear to auscultation Neuro: Positive: Grossly Intact Abdomen: Positive: Soft, Active Bowel Sounds. Negative: Tender Skin: Positive: Clear. Negative: Rash Musculoskeletal: Normal Range of Motion Extremities: Present: normal. Absent: edema - Labs and Meds Comprehensive Metabolic Panel 03/07/16 Range/Units 05:21 Sodium 141 (137-145) mmol/L Potassium 5.2 H (3.6-5.0) mmol/L Chloride 105.5 (98-107) mmol/L Carbon Dioxide 21 L (22-30) mmol/L BUN 41 H (9-20) mg/dL Creatinine 3.0 H (0.8-1.5) mg/dL Glucose 105 H (75-100) mg/dL Calcium 8.8 (8.4-10.2) mg/dL - Imaging and Cardiology EKG: image reviewed Echo: report reviewed (03/2016: EF 55-60%) - Telemetry EKG Rhythm: Sinus Rhythm - EKG Sinus rhythms and dysrhythmias: sinus rhythm Repolarization changes or abnormalities: ST or T wave suggestive of ischemia
[2016-03-07 11:17] VITALS: BP 135/77
--- NOTE | 2016-03-07 11:49 | Discharge Summary ---
Providers - Providers Date of Admission: 03/05/16 10:59 Date of discharge: 03/07/16 Attending physician: TACOS ORTEZ 03/05/16 11:30 Consult to Physician [CONS] Routine Consulting Provider: CORRINA DAWN Reason For Exam: SVT, chest pain Place consult to:: Dr. Dawn Notified:: Jana RUFFIN Phone number called:: Was contact made?: Yes If yes, spoke with:: Geena-answering service Time called:: 17:49 03/05/16 11:36 Consult to Physician [CONS] Routine Consulting Provider: BEN BUCKNER Reason For Exam: CKD cr 3.3 Place consult to:: Dr. Buckner Notified:: Jana RUFFIN Phone number called:: [phone] Was contact made?: Yes If yes, spoke with:: Viviane-answering service Time called:: 17:57 Primary care physician: MACHINERY RIGGER Hospitalization Reason for admission: PSVT; pain, abnormal EKG Condition: Stable Pertinent studies: stress test- Hospital course: Mr. Stephenson presented to the ER with palpitations and chest pain; he was seen in the ER and was in was found to be in SVT with heart rate of 200. He was given IV adenosine and he converted to sinus rhythm. He was evaluated by the cotton puller. He had an abnormal EKG with ST depression in the lateral leads. He subsequently developed elevated troponins and was started on treatment for non-ST segment elevation MD. He subsequently had a stress test which was normal. Likely patient had NSTEMI type II ; also seen by the hydraulic strainer operator while he was here. He was cleared for discharge on the cotton puller; and no other recurrent episode of SVT while he was here Condition at discharge-stable 31 minutes spent preparing discharge Disposition: DISCHARGED TO HOME OR SELFCARE - Discharge Diagnoses (1) SVT (supraventricular tachycardia) Status: Acute (2) Non-ST elevation myocardial infarction (NSTEMI), type 2 Status: Acute (3) Chest pain Status: Resolved Qualifiers: Chest pain type: precordial chest pain Qualified Code(s): R07.2 - Precordial pain (4) CKD (chronic kidney disease) Status: Chronic Qualifiers: Chronic kidney disease stage: stage 3 (moderate) Qualified Code(s): N18.3 - Chronic kidney disease, stage 3 (moderate) Core Measure Documentation - Palliative Care Palliative Care/ Comfort Measures: Not Applicable - Core Measures Any of the following diagnoses?: acute MD - Acute MD Discharge Requirements Aspirin at discharge: Yes RITU/ARB for LVSD if EF <40%: Not Applicable Beta yazmin at discharge: Yes Statin for LDL = or >100 mg/dl on DC: Yes Exam - Constitutional Vitals: Temp Pulse Resp BP Pulse Ox 98.6 F 78 20 135/77 98 03/07/16 06:33 03/07/16 10:53 03/07/16 06:33 03/07/16 10:33 03/07/16 06:33 General appearance: Present: no acute distress, well-nourished - EENT Eyes: Present: PERRL, EOM intact. Absent: scleral icterus, conjunctival injection ENT: hearing intact, clear oral mucosa, no oropharyngeal erythema, no poor dentition - Neck Neck: Present: supple, normal ROM. Absent: enlarged thyroid, masses or JVD - Respiratory Respiratory effort: normal Respiratory: negative: diminished, rales, rhonchi, wheezing - Cardiovascular Rhythm: regular Heart Sounds: Present: S1 & S2. Absent: gallop - Extremities Extremities: no ischemia, pulses intact, pulses symmetrical Peripheral Pulses: within normal limits - Abdominal General gastrointestinal: Present: soft, non-tender, non-distended Male genitourinary: Present: deferred - Rectal Rectal Exam: deferred - Integumentary Integumentary: Present: clear - Musculoskeletal Musculoskeletal: strength equal bilaterally - Psychiatric Psychiatric: appropriate mood/affect, intact judgment & insight - Neurologic Neurologic: CNII-XII intact, moves all extremities Plan Activity: no restrictions Diet: low fat, low cholesterol, low salt Follow up with: JANELL ARREOLA MD [Primary Care Provider] - 3-5 Days CORRINA DAWN MD [Staff Physician] - 03/11/16 1:00 pm Prescriptions: Aspirin [Aspirin TAB] 325 mg PO QDAY #30 tablet AtorvaSTATin [Lipitor] 20 mg PO QHS #30 tablet Metoprolol Xl [Metoprolol SUCCINATE ER TAB] 25 mg PO QDAY #30 tablet
[2016-03-07] MEDS: ASPIRIN PO SCH (11:50)
--- NOTE | 2016-03-07 12:15 | Treadmill Report ---
NUCLEAR STUDY REASON FOR STUDY: SVT and abnormal troponins. IMAGING PROTOCOL: The patient received 10 mCi of Technetium 99m Tetrofosmin for resting image and 28 mCi of Technetium 99m Tetrofosmin for stress imaging. The imaging for the whole procedure was completed 30-90 minutes following the initial injection of Technetium 99m tetrofosmin. The SPECT imaging in the 180 degree arc was performed in the right anterior oblique projection. Computerized reconstruction of the images was performed for analysis. IMAGING RESULTS: Normal cavity size from stress to rest. Normal distribution of radionuclide in the anterior, inferior, septal, and apical regions. Gated SPECT, EF 70%. SUMMARY: 1. Negative Lexiscan EKG. 2. Normal rest and stress myocardial perfusion scan. No significant stress ischemia. No wall motion abnormality. Gated SPECT, EF 70%. JOB# [id number] SHERRY/[place]
--- NOTE | 2016-03-07 13:04 | Progress Note ---
Assessment and Plan Assessment: 1. Acute kidney injury superimposed on CKD stage 3, most likely due to pre- renal azotemia and hemodynamic changes in the setting of rapid SVT. 2. SVT 3. elevated troponin 4. h/o FSGS 5. Hypertension 6. Metabolic acidosis 7. Proteinuria due to #4 Plan/recommendations : - metabolic acidosis improved s/p IV bicarb. Cr improved to 3mg/dl. No acute indication for cardiac cath with negative stress test as per cardiology. - continue to hold valsartan for now until GFR is in steady state. - BP currently well controlled - continue supportive care for HANNAH/CKD avoid nephrotoxins, NSAIDs, use lowest possible amount of IV contrast. - Stable for discharge from renal stand point with outpatient CKD f/u. d/w patient and Dr Bishop. Subjective Date of service: 03/07/16 Principal diagnosis: SVT, elevated troponin Interval history: patient awake, alert, in NAD. had negative stress test. Objective - Vital Signs Vital signs: Vital Signs - 12hr 03/07/16 03/07/16 03/07/16 05:00 06:33 10:25 Temperature 98.6 F Pulse Rate 84 90 Pulse Rate [ 86 Left Radial] Respiratory 20 Rate Blood Pressure 150/89 Blood Pressure 122/83 [Left Radial Artery] O2 Sat by Pulse 98 Oximetry 03/07/16 03/07/16 03/07/16 10:29 10:30 10:31 Temperature Pulse Rate 116 H 136 H 135 H Pulse Rate [ Left Radial] Respiratory Rate Blood Pressure 142/66 140/78 157/79 Blood Pressure [Left Radial Artery] O2 Sat by Pulse Oximetry 03/07/16 03/07/16 03/07/16 10:32 10:33 10:53 Temperature Pulse Rate 125 H 125 H 78 Pulse Rate [ Left Radial] Respiratory Rate Blood Pressure 133/79 135/77 Blood Pressure [Left Radial Artery] O2 Sat by Pulse Oximetry - General Appearance General appearance: well-developed, well-nourished, appears stated age EENT: ATNC, PERRL, mucous membranes moist Neck: no JVD Respiratory: Present: Clear to Ascultation Cardiology: regular, S1S2 Gastrointestinal: normal, normoactive bowel sounds Integumentary: no rash, other (no edema) Neurologic: no focal deficit, alert and oriented x3, strength 5/5, CN 3-12 intact Psychiatric: mood/affect appropriate, cooperative - Lab 03/05/16 08:10 03/07/16 05:21 Most recent lab results Calcium 8.8 mg/dL (8.4-10.2) 03/07/16 05:21 Magnesium 1.8 mg/dL (1.7-2.3) 03/07/16 05:21
== END 2016-03-07 13:05 | disposition home or self-care (01) | DRG 280 ==
LOC: ED 07:23 → 4A 10:59
PROVIDERS: ADMIT Internal Medicine; ATTEND Hospitalist
DX: I21.4 Non-ST elevation (NSTEMI) myocardial infarction (principal); N17.0 Acute kidney failure with tubular necrosis; I47.1 Supraventricular tachycardia; N18.4 Chronic kidney disease, stage 4 (severe); E87.2 Acidosis; R94.31 Abnormal electrocardiogram [ECG] [EKG]; I12.9 Hypertensive chronic kidney disease with stage 1 through stage 4 chronic kidney disease, or unspecified chronic kidney disease; D63.1 Anemia in chronic kidney disease; E83.42 Hypomagnesemia; E78.5 Hyperlipidemia, unspecified; Z82.49 Family history of ischemic heart disease and other diseases of the circulatory system; Z88.8 Allergy status to other drugs, medicaments and biological substances
CPT/HCPCS: 36415; 71010; 78452; 80048; 80053; 80061; 81001; 82550; 83735; 83880; 84439; 84443; 84484; 85025; 85610; 85730; 93005; 93010; 93017; 93306; 96361; 96374; 96375; A9270-GY; A9502; J0153; J1650; J2250; J2405; J2785; J3010; J3475; J7030